=== PATIENT | male | born 2000 | race Caucasian/White ===

== ENCOUNTER 2023-01-25 20:00 | Emergency (ER) | payer OTHER ==
[~2023-01-25] VITALS: Ht 185.4 cm; Wt 102.5 kg
[2023-01-25 21:09] VITALS: BP 135/83
== END 2023-01-25 22:01 | disposition home or self-care (01) ==
LOC: ER 20:00
DX: S02.5XXA Fracture of tooth (traumatic), initial encounter for closed fracture (principal); T24.001A Burn of unspecified degree of unspecified site of right lower limb, except ankle and foot, initial encounter; T24.022A Burn of unspecified degree of left knee, initial encounter; S40.212A Abrasion of left shoulder, initial encounter; S09.93XA Unspecified injury of face, initial encounter; V28.49XA Other motorcycle driver injured in noncollision transport accident in traffic accident, initial encounter
CPT/HCPCS: 71046; 73562-LT; 73590; 99284-25